=== PATIENT | female | born 1980 | race Caucasian/White ===

== ENCOUNTER 2019-03-11 13:18 | Emergency (ER) | payer SELFPAY ==
[~2019-03-11] VITALS: Ht 165.1 cm; Wt 99.8 kg
[~2019-03-11 13:18] MED LIST: ARIP10TA9; HYDR10TA2; SERT50TA
[2019-03-11 15:00] VITALS: BP 117/82
[2019-03-11] MEDS ORDERED: IPRATRPIUM/ALBUTEROL 0.5/2.5MG 3 ML NEBU. NEB ONE (15:00)
[2019-03-11] MEDS ORDERED: methylPREDNISolone SOD SUCC PF 125 MG/2 ML VIAL. IM ONE (15:00)
[2019-03-11] MEDS ORDERED: PRED50TA PO (16:13)
[2019-03-11] MEDS ORDERED: BENZ100C PO (16:13)
[2019-03-11] MEDS ORDERED: ALBU2.5V8 INH (16:13)
--- NOTE | 2019-03-11 16:13 | PHYS DOC ---
Past Medical History Past Medical History: Bipolar, Depression, Diabetes-Type II Past Surgical History: No Surgical History, Cholecystectomy, , Other Additional Past Surgical Histo: right ankle Alcohol Use: None Drug Use: None Adult General Chief Complaint Chief Complaint: COUGH HPI HPI Patient is a 38 year old female who presents to the ER with complaints of a non-productive cough, painful inspiration, and nasal congestion for the last week. She denies any fever, abdominal pain, nausea, vomiting, diarrhea, ear pain, or sore throat. Pt states she feels like she can't catch her breath after coughing. She also reports wheezing. She currently rates the pain in her lungs a 10/10 and describes it as burning, there are no alleviating factors. She denies any palpitations, dizziness, syncope, or swelling. She reports chest tenderness to palpation bilateral. Review of Systems Review of Systems Constitutional: Denies fever or chills [] Eyes: Denies change in visual acuity, redness, or eye pain [] HENT: see HPI Respiratory: See HPI Cardiovascular: No additional information not addressed in HPI [] GI: Denies abdominal pain, nausea, vomiting, or diarrhea [] Musculoskeletal: Denies back pain or joint pain; see HPI [] Integument: Denies rash or skin lesions [] Neurologic: Denies headache Complete systems were reviewed and found to be within normal limits, except as documented in this note. Current Medications Current Medications Current Medications Medications (Trade) Dose Ordered Sig/[facility] Start Time Stop Time Status Last Admin Dose Admin Albuterol/ Ipratropium (Duoneb) 3 ml 1X ONCE 03/11/19 15:00 03/11/19 15:01 DC 03/11/19 15:52 3 ML Methylprednisolone Sodium Succinate (SOLU-Medrol 125MG VIAL) 125 mg 1X ONCE 03/11/19 15:00 03/11/19 15:01 DC 03/11/19 15:28 125 MG Allergies Allergies Allergies Coded Allergies Type Severity Reaction Last Updated Verified Amoxicillin Allergy Unknown 10/03/13 Yes Physical Exam Physical Exam Constitutional: Well developed, well nourished, no acute distress, non-toxic appearance. [] HENT: Normocephalic, atraumatic, bilateral external ears normal, bilateral TMs normal, posterior pharynx congested, oropharynx moist, no oral exudates, nose congested. Eyes: PERRLA, EOMI, conjunctiva normal, no discharge. [] Neck: Normal range of motion, no tenderness, supple, no stridor. [] Cardiovascular:Heart rate regular rhythm, no murmur [] Lungs & Thorax: Bilateral breath sounds coarse in posterior garcia with scattered wheezes, no retractions, speaking full sentences, bilateral anterior chest wall tenderness to palpation Abdomen: soft, no tenderness, no masses, no pulsatile masses. [] Skin: Warm, dry, no erythema, no rash. [] Back: No tenderness Extremities: No tenderness, no cyanosis, no clubbing, ROM intact, no edema. [] Neurologic: Alert and oriented X 3, no focal deficits noted. [] Psychologic: Affect normal, judgement normal, mood normal. [] Current Patient Data Vital Signs Vital Signs Date Time Temp Pulse Resp B/P (MAP) Pulse Ox O2 Delivery O2 Flow Rate FiO2 03/11/19 15:52 99 Room Air 03/11/19 15:00 98.9 76 20 117/82 (94) 98.9 EKG EKG [] Radiology/Procedures Radiology/Procedures PROCEDURE: CHEST PA & LATERAL CHEST PA LATERAL Clinical indications: Cough for one week. COMPARISON: None available. Findings: Small right midlung zone nodule is seen. No acute lung infiltrate or pleural effusion or pulmonary edema or lung mass or pneumothorax is seen. Heart size is at the upper limits normal. The pulmonary vasculature, mediastinum and both jojo are unremarkable. The osseous structures appear intact. Impression: No acute radiographic abnormality is seen. Small right midlung zone nodule. Recommend a follow-up chest x-ray in 6 months to ensure stability. This most likely represents a small granuloma. [] Course & Med Decision Making Course & Med Decision Making Pertinent Labs and Imaging studies reviewed. (See chart for details) dx: URI, Bronchitis Pt was given 125 mg of IM solumedrol and an albuterol breathing tx in the ER Cxr negative for acute findings including pneumonia, or spontaneous pneumothorax. Prescriptions written for albuterol MDI, prednisone, and tessalon perrles. Follow up with PCP in 1-2 days, return to ER if symptoms worsen. PT reports feeling better after medications. Patient verbalized an understanding of home care, medications, follow-up, and return to ED instructions and was in agreement with the plan of care. [] Dragon Disclaimer Dragon Disclaimer This electronic medical record was generated, in whole or in part, using a voice recognition dictation system. Departure Departure Impression: Primary Impression: URI (upper respiratory infection) Additional Impression: Acute bronchitis Disposition: 01 HOME, SELF-CARE Condition: STABLE Referrals: NO PCP (PCP) Patient Instructions: Acute Bronchitis, [id number], Upper Respiratory Infection, Adult, [id number] Additional Instructions: Fill prescription(s) and use as directed. Recommend use of a Cool mist humidifier in room at bedtime. Alternate Tylenol or ibuprofen as needed for pain/fever. Increase clear fluids. Avoid airway triggers such as smoke, fragrance, dust, and pollen. Follow-up with your primary care doctor in 1-2 days, return to the ER if symptoms worsen. Scripts Benzonatate (TESSALON PERLE) 100 Mg Capsule 1 CAP PO TID PRN for COUGH for 7 Days, #21 CAP 0 Refills Prov: ADELE FUCHS COAL CHEMIST 03/11/19 Albuterol Sulfate (PROAIR HFA INHALER) 8.5 Gm Hfa.aer.ad 2 PUFF INH PRN Q6HRS PRN for SHORTNESS OF BREATH for 30 Days, #1 INHALER 0 Refills Prov: ADELE FUCHS COAL CHEMIST 03/11/19 Prednisone (PREDNISONE) 50 Mg Tablet 1 TAB PO DAILY for 5 Days, #5 TAB 0 Refills begin taking on 03/12/19 Prov: ADELE FUCHS COAL CHEMIST 03/11/19 Problem Qualifiers Primary Impression: URI (upper respiratory infection) URI type: unspecified URI Qualified Codes: J06.9 - Acute upper respiratory infection, unspecified Additional Impression: Acute bronchitis Bronchitis organism: unspecified organism Qualified Codes: J20.9 - Acute bronchitis, unspecified ADELE FUCHS COAL CHEMIST Mar 11, 2019 16:13
== END 2019-03-11 16:27 | disposition home or self-care (01) ==
LOC: ER 13:18
DX: J20.9 Acute bronchitis, unspecified (principal); F31.9 Bipolar disorder, unspecified; E11.9 Type 2 diabetes mellitus without complications; Z90.49 Acquired absence of other specified parts of digestive tract; Z98.890 Other specified postprocedural states; Z88.0 Allergy status to penicillin
CPT/HCPCS: 71046; 94640; 96372; 99284; J2930; J7620

== ENCOUNTER 2020-01-21 15:47 | Emergency (ER) | payer SELFPAY ==
[~2020-01-21] VITALS: Ht 165.1 cm; Wt 93.2 kg
[~2020-01-21 15:47] MED LIST changes: +ALBU2.5V8 INH; +BENZ100C PO; +PRED50TA PO
--- NOTE | 2020-01-21 17:41 | PHYS DOC ---
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 Patient states that pain in her head from her teeth has been going on for the past few months, states she is aware of her dental problems but has not been able to afford to see a dental surgeon to have her teeth removed. Patient states that the chest pain started this morning after lifting heavy patients and she needed to leave work early. Patient rates her pain a 10/10 pain on a 1-10 pain scale. Patient denies exposure to the COVID-19 virus and does not want to be tested for the COVID-19 virus today. Patient denies any fever or chills, any changes her visual acuity, denies nasal congestion, sore throat, cough, or shortness of breath. Patient denies any problems urinating, denies vaginal discharge, denies STI concerns. Patient denies abdominal pain, nausea, vomiting, diarrhea, constipation. Patient denies any pain in her back or pain in her joints. Patient denies any skin rashes, increased urination or increased thirst. Patient denies swelling of her glands. Patient denies any recent depressions, anxieties, homicidal or suicidal ideations. Review of Systems: Review of Systems: Constitutional: Denies fever or chills. Denies recent exposure to COVID-19 virus, does not wish to be tested today. Eyes: Denies change in visual acuity. HENT: Denies nasal congestion or sore throat. Complains of dental cavities that she has had for months. Respiratory: Denies cough or shortness of breath. Cardiovascular: Complains of chest pain with movement of left or right arm, deep breathing, or pushing on her center lower chest area. GI: Denies abdominal pain, nausea, vomiting, bloody stools or diarrhea. : Denies dysuria. Denies STI concerns denies vaginal discharge. Musculoskeletal: Denies back pain or joint pain. Integument: Denies rash. Denies diaphoresis. Neurologic: Denies headache, focal weakness or sensory changes. Endocrine: Denies polyuria or polydipsia. Lymphatic: Denies swollen glands. Psychiatric: Denies depression or anxiety. Denies homicidal or suicidal ideations. Heart Score: HEART Score for Chest Pain: HEART Score for Chest Pain Response (Comments) Value History Slighlty/Non-Suspicious 0 ECG Normal 0 Age < 45 0 Risk Factors No Risk Factors 0 Troponin < Normal Limit 0 Total 0 Risk Factors: Risk Factors: DM, Current or recent (<one month) smoker, HTN, HLP, family history of CAD, obesity. Risk Scores: Score 0 - 3: 2.5% MACE over next 6 weeks - Discharge Home Score 4 - 6: 20.3% MACE over next 6 weeks - Admit for Clinical Observation Score 7 - 10: 72.7% MACE over next 6 weeks - Early Invasive Strategies Allergies: Allergies: Allergies Coded Allergies Type Severity Reaction Last Updated Verified Amoxicillin Allergy Unknown 10/03/13 Yes Physical Exam: PE: Constitutional: Well developed, well nourished, no acute distress, non-toxic appearance. HENT: Normocephalic, atraumatic, bilateral external ears normal, oropharynx moist, no oral exudates, nose normal. Patient has poor dentition with cavities of her upper rear molars 2 on the rear left one in the rear right, consistent with pulpitis. Eyes: PERRLA, EOMI, conjunctiva normal, no discharge. 4 mm. Neck: Normal range of motion, no tenderness, supple, no stridor. Cardiovascular:Heart rate regular rhythm, no murmur heart sounds S1-S2, no abnormalities per auscultation. Lungs & Thorax: Bilateral breath sounds clear to auscultation all lung garcia. Abdomen: Bowel sounds normal, soft, no tenderness, no masses, no pulsatile masses. Skin: Warm, dry, no erythema, no rash. Back: No tenderness, no CVA tenderness. Extremities: No tenderness, no cyanosis, no clubbing, ROM intact, no edema. Neurologic: Alert and oriented X 3, normal motor function, normal sensory function, no focal deficits noted. Psychologic: Affect normal, judgement normal, mood normal. No homicidal or suicidal ideation. Musculoskeletal: Patient had reproducible chest pain to movement of both upper extremities, also to palpation near sternal xiphoid process area, also increased pain to deep inspiration. Patient reports absolutely no pain when she is sitting still and not breathing. Current Patient Data: Vital Signs: Vital Signs Date Time Temp Pulse Resp B/P (MAP) Pulse Ox O2 Delivery O2 Flow Rate FiO2 01/21/20 16:32 98.1 79 16 125/59 (81) 99 Room Air 98.1 EKG: EKG: EKG performed at 1553 by ED nursing staff today. Heart rate is 85, normal sinus rhythm without ectopy. EKG interpreted by ED attending Dr. Orta. No STEMI noted no ACS concerns noted. Radiology/Procedures: Radiology/Procedures: [] Course & Med Decision Making: Course & Med Decision Making Pertinent Labs and Imaging studies reviewed. (See chart for details) 39-year-old female resents to the ED today complaining of a headache that she thinks generates from her cavities that she has had for a few months now. Patient also states that she has some chest pain that started after lifting some heavy patients at her snf job. Vital signs were reviewed, labs were ordered, EKG was not concerning for STEMI or ACS. Patient's physical exam was consistent with musculoskeletal chest wall pain. Patient has poor dental caries, upper rear molars show consistencies with pulpitis, nerves are exposed. Patient states that she will make an appointment to see an oral surgeon soon, patient states that she has been unable to afford to get her teeth pulled. Discussed findings with patient regarding musculoskeletal chest wall pain, patient states that she has had this before from doing her snf work. Discussed with patient will start clindamycin for her dental caries, and she needs to follow-up with oral surgery soon. Patient gave verbal understanding of discharge home instructions and prescription use, had no further questions or concerns. Patient discharged home. Dragon Disclaimer: Dragon Disclaimer: This electronic medical record was generated, in whole or in part, using a voice recognition dictation system. Departure Departure Impression: Primary Impression: Chest wall pain Additional Impressions: Pulpitis Dental caries Disposition: HOME, SELF-CARE Condition: GOOD Referrals: UNKNOWN PCP NAME (PCP) Patient Instructions: Chest Wall Pain Additional Instructions: Please follow-up with oral surgery soon, take prescriptions as directed. Return to the emergency department for worsening symptoms or further concerns. Scripts Ibuprofen (IBUPROFEN) 600 Mg Tablet 600 MG PO PRN Q6HRS PRN for INFLAMMATION, #20 TAB 0 Refills Prov: JANET LEWIS APRN 01/21/20 Tramadol Hcl (TRAMADOL HCL) 50 Mg Tablet 50 MG PO Q6HRS PRN for PAIN, #10 TAB 0 Refills Prov: JANET LEWIS APRN 01/21/20 Clindamycin Hcl (CLINDAMYCIN HCL) 300 Mg Capsule 1 CAP PO TID, #21 CAP 0 Refills Prov: JANET LEWIS APRN 01/21/20 Justicifation of Admission Dx: Justifications for Admission: Justification of Admission Dx: N/A JANET LEWIS APRN Jan 21, 2020 17:41
[2020-01-21] MEDS ORDERED: CLINDAMYCIN HCL 150 MG CAPSULE. PO ONE (17:45)
[2020-01-21] MEDS ORDERED: HYDROcodone/APAP 5/325MG 1 TAB TABLET PO ONE (17:45)
[2020-01-21] MEDS ORDERED: KETOROLAC 60 MG/2 ML VIAL. IM ONE (17:45)
[2020-01-21] MEDS ORDERED: fentaNYL PF VIAL 100 MCG/2 ML VIAL IVP ONE (19:15)
[2020-01-21] MEDS ORDERED: CLIN300C8 PO (19:25)
[2020-01-21] MEDS ORDERED: IBUP-1007 PO (19:25)
[2020-01-21] MEDS ORDERED: TRAM50TA PO (19:25)
[2020-01-21 19:46] VITALS: BP 104/60
--- NOTE | 2020-01-23 05:01 | EKG ---
[facility] [address] [place] [address] Test Date: 2020-01-21 Test Time: 15:53:47 Pat Name: DELBERT LANDRY Department: Room: Gender: F Butt Presser: : 1980 Requested By: JANET LEWIS Order Number: [id number] Reading MD: Measurements Intervals [place] Rate: 85 P: 26 AL: 132 QRS: -7 QRSD: 96 T: -15 QT: 342 QTc: 412 Interpretive Statements SINUS RHYTHM LEFTWARD AXIS INCOMPLETE RIGHT BUNDLE BRANCH BLOCK T ABNORMALITY IN ANTERIOR LEADS INFEROLATERAL LEADS ABNORMAL ECG RI6.02 No previous ECG available for comparison
== END 2020-01-21 19:55 | disposition home or self-care (01) ==
LOC: ER 15:47
DX: K02.9 Dental caries, unspecified (principal); R07.89 Other chest pain; K04.01 Reversible pulpitis; R51 Headache; E11.9 Type 2 diabetes mellitus without complications; F32.9 Major depressive disorder, single episode, unspecified; F17.200 Nicotine dependence, unspecified, uncomplicated; Z90.49 Acquired absence of other specified parts of digestive tract; Z98.890 Other specified postprocedural states; Z88.1 Allergy status to other antibiotic agents
CPT/HCPCS: 36415; 84484; 96372; 96374; 99284; J1885; J3010; 93005

== ENCOUNTER 2020-02-06 12:33 | Emergency (ER) | payer SELFPAY ==
[~2020-02-06] VITALS: Ht 165.1 cm; Wt 97.0 kg
[~2020-02-06 12:33] MED LIST changes: +CLIN300C8 PO; +IBUP-1007 PO; +TRAM50TA PO
[2020-02-06] MEDS ORDERED: CYCL10TA2 PO (13:11)
[2020-02-06] MEDS ORDERED: NAPR-514 PO (13:11)
--- NOTE | 2020-02-06 13:12 | PHYS DOC ---
Past Medical History Past Medical History: Bipolar, Depression, Diabetes-Type II, Other Additional Past Medical Histor: CROHNS, DECREASED VISION R EYE Past Surgical History: Cholecystectomy, , Other Additional Past Surgical Histo: right ankle, MULTIPLE R EYE INJECTIONS Smoking Status: Current Every Day Smoker Alcohol Use: Occasionally Drug Use: None General Adult EDM: Chief Complaint: BACK PAIN OR INJURY HPI: HPI: Patient is a 39 year old female who presents to the emergency department with complaints of right-sided lower back pain that radiates to her right leg for the last 5 days. She denies any injury, fall, or recent trauma. The patient reports that the pain is worse with movement of her right leg, palpation of her right low back, and activity. She denies any saddle anesthesia or loss of bowel or bladder control. She denies any dysuria, hematuria, increased urinary frequency, numbness, tingling, or weakness of her extremities. She denies any fever, shortness of breath, chest pain, headache, nausea, vomiting, or diarrhea. She currently rates the pain a 9 out of 10 on the pain scale, she has tried taking Aleve, ibuprofen, Tylenol at home with no relief in her symptoms. She denies any alleviating factors. Review of Systems: Review of Systems: Constitutional: Denies fever or chills. [] HENT: Denies nasal congestion or sore throat. [] Respiratory: Denies cough or shortness of breath. [] Cardiovascular: Denies chest pain or edema. [] GI: Denies abdominal pain, nausea, vomiting, or diarrhea. [] : Denies dysuria. [] Musculoskeletal: See HPI Integument: Denies rash. [] Neurologic: Denies focal weakness or sensory changes. [] Endocrine: Denies polyuria or polydipsia. [] Lymphatic: Denies swollen glands. [] Psychiatric: Denies depression or anxiety. [] Heart Score: Risk Factors: Risk Factors: DM, Current or recent (<one month) smoker, HTN, HLP, family history of CAD, obesity. Risk Scores: Score 0 - 3: 2.5% MACE over next 6 weeks - Discharge Home Score 4 - 6: 20.3% MACE over next 6 weeks - Admit for Clinical Observation Score 7 - 10: 72.7% MACE over next 6 weeks - Early Invasive Strategies Allergies: Allergies: Allergies Coded Allergies Type Severity Reaction Last Updated Verified Amoxicillin Allergy Unknown 10/03/13 Yes Physical Exam: PE: Constitutional: Well developed, well nourished, no acute distress, non-toxic appearance, obese. [] HENT: Normocephalic, atraumatic, bilateral external ears normal, oropharynx moist, no oral exudates, nose normal. [] Eyes: PERRLA, EOMI, conjunctiva normal, no discharge. [] Neck: Normal range of motion, no stridor. [] Cardiovascular:Heart rate regular rhythm, no murmur [] Lungs & Thorax: Respirations even and unlabored, no retractions, no respiratory distress Skin: Warm, dry, no erythema, no rash. [] Back: No bony tenderness, no CVA tenderness; right lumbar paraspinal TTP, increased pain with right straight leg lift.. [] Extremities: No cyanosis, ROM intact, no edema. [] Neurologic: Alert and oriented X 3, normal motor function, normal sensory function, no focal deficits noted. [] Psychologic: Affect normal, judgement normal, mood normal. [] Current Patient Data: Vital Signs: Vital Signs Date Time Temp Pulse Resp B/P (MAP) Pulse Ox O2 Delivery O2 Flow Rate FiO2 02/06/20 12:45 97.8 80 16 139/87 (104) 99 Room Air 97.8 EKG: EKG: [] Radiology/Procedures: Radiology/Procedures: [] Course & Med Decision Making: Course & Med Decision Making Pertinent Labs and Imaging studies reviewed. (See chart for details) [] Dragon Disclaimer: Dragon Disclaimer: This electronic medical record was generated, in whole or in part, using a voice recognition dictation system. Departure Departure Impression: Primary Impression: Acute low back pain with right-sided sciatica Qualified Codes: M54.41 - Lumbago with sciatica, right side Disposition: 01 HOME, SELF-CARE Condition: STABLE Referrals: NO PCP (PCP) Patient Instructions: Sciatica, [id number] Additional Instructions: Fill the prescription(s) and use as directed. Apply heat or ice for to sore areas as needed for comfort. Activity as tolerated. Follow up with your primary care doctor this week if symptoms persist, return to the ER if symptoms worsen. [facility] [address] [address] [facility] [address] [place] [address] [facility] [address] [place] [address] [facility] [address] [place] [address] [facility] [address] [place] [address] [facility] [address] [place] [address] [address] [place] [address] [facility] [address] [place] [address] [facility] [address] [place] [address] [facility] Department [address] [place] [address] Scripts Naproxen (NAPROXEN) 500 Mg Tablet 1 TAB PO BID PRN for PAIN for 10 Days, #20 TAB 0 Refills Prov: ADELE FUCHS APRN 02/06/20 Cyclobenzaprine Hcl (CYCLOBENZAPRINE HCL) 10 Mg Tablet 1 TAB PO TID PRN for MUSCLE PAIN for 10 Days, #30 TAB 0 Refills Prov: ADELE FUCHS APRN 02/06/20 Justicifation of Admission Dx: Justifications for Admission: Justification of Admission Dx: N/A ADELE FUCHS APRN Feb 06, 2020 13:12
[2020-02-06 13:19] VITALS: BP 125/73
== END 2020-02-06 13:20 | disposition home or self-care (01) ==
LOC: ER 12:33
DX: M54.41 Lumbago with sciatica, right side (principal); F31.9 Bipolar disorder, unspecified; E11.9 Type 2 diabetes mellitus without complications; F17.200 Nicotine dependence, unspecified, uncomplicated; K50.90 Crohn's disease, unspecified, without complications; Z90.49 Acquired absence of other specified parts of digestive tract; Z88.1 Allergy status to other antibiotic agents
CPT/HCPCS: 99283

== ENCOUNTER 2020-05-02 14:09 | Emergency (ER) | payer SELFPAY ==
[~2020-05-02] VITALS: Ht 165.1 cm; Wt 95.0 kg
[~2020-05-02 14:09] MED LIST changes: +CYCL10TA2 PO; +NAPR-514 PO
[2020-05-02 14:44] LABS: BASO % 0 % (0-3); EOS # 0.6 x10^3/uL (0.0-0.7); EOS % 6 % (0-3); HEMATOCRIT 37.5 % (36.0-47.0); HEMOGLOBIN 12.1 g/dL (12.0-15.5); LYMPH # 2.8 x10^3/uL (1.0-4.8); LYMPH % 30 % (24-48); MEAN CORPUSCULAR HEMOGLOBIN 27 pg (25-35); MEAN CORPUSCULAR HGB CONC 32 g/dL (31-37); MEAN CORPUSCULAR VOLUME 84 fL (79-100); MONO # 0.5 x10^3/uL (0.0-1.1); MONO % 5 % (0-9); NEUT # 5.7 x10^3/uL (1.8-7.7); NEUT % 60 % (31-73); PLATELET COUNT 340 x10^3/uL (140-400); RED BLOOD COUNT 4.48 x10^6/uL (3.50-5.40); RED CELL DISTRIBUTION WIDTH 15.1 % (11.5-14.5); WHITE BLOOD COUNT 9.6 x10^3/uL (4.0-11.0)
[2020-05-02] MEDS ORDERED: MORPHINE SULFATE 4 MG/ML VIAL. IV/SQ PRN (14:45)
[2020-05-02] MEDS ORDERED: ASPIRIN 325 MG TABLET PO ONE (14:45)
[2020-05-02] MEDS: NITROGLYCERIN SUBLINGUAL 0.4 MG BOTTLE OF 25. SL PRN ×3 (15:01→15:48)
--- NOTE | 2020-05-02 15:04 | RAD ---
INDICATION: Reason: chest pain / Spl. Instructions: / History: COMPARISON: March 11, 2019 FINDINGS: Single view of chest obtained. Cardiac silhouette is similar to prior. No definite focal airspace consolidation. Mild interstitial prominence bilaterally. IMPRESSION: * Mild interstitial opacities bilaterally which can be seen with interstitial infiltrate or mild pulmonary vascular congestion. Electronically signed by: Musa Morales MD (05/02/2020 3:01 PM) [id number]
[2020-05-02 15:06] LABS: CREATININE 0.7 mg/dL (0.6-1.0); GFR 93.6; POTASSIUM 3.9 mmol/L (3.5-5.1)
[2020-05-02 15:13] LABS: ALBUMIN 3.6 g/dL (3.4-5.0); ALBUMIN/GLOBULIN RATIO 0.9 (1.0-1.7); MAGNESIUM 2.3 mg/dL (1.8-2.4); TOTAL BILIRUBIN 0.2 mg/dL (0.2-1.0); TOTAL PROTEIN 7.6 g/dL (6.4-8.2)
--- NOTE | 2020-05-02 15:28 | PHYS DOC ---
Past Medical History Past Medical History: Asthma, Bipolar, Depression, Diabetes-Type II, High Cholesterol, Other Additional Past Medical Histor: CROHNS, DECREASED VISION R EYE Past Surgical History: Cholecystectomy, , Other Additional Past Surgical Histo: right ankle, MULTIPLE R EYE INJECTIONS Smoking Status: Current Every Day Smoker Alcohol Use: Occasionally Drug Use: None General Adult EDM: Chief Complaint: CHEST PAIN HPI: HPI: Patient is a 39 year old female with a history of diabetes type 2, high cholesterol, depression, anxiety, current smoker, who presents to the ED today complaining of 8 out of 10 left-sided chest pain nonradiating nature, symptoms began 2 hours ago. Patient states symptoms are worse on deep breaths. Describ es the pain as sharp and constant. Denies anything specifically relieving the pain, she states Tylenol do anything to help her with pain. Review of Systems: Review of Systems: Constitutional: Denies fever or chills. [] Eyes: Denies change in visual acuity. [] HENT: Denies nasal congestion or sore throat. [] Respiratory: Denies cough or shortness of breath. [] Cardiovascular: Reports left-sided chest pain GI: Denies abdominal pain, nausea, vomiting, bloody stools or diarrhea. [] : Denies dysuria. [] Musculoskeletal: Denies back pain or joint pain. [] Integument: Denies rash. [] Neurologic: Denies headache, focal weakness or sensory changes. [] Psychiatric: Denies depression or anxiety. [] Heart Score: HEART Score for Chest Pain: HEART Score for Chest Pain Response (Comments) Value History Slighlty/Non-Suspicious 0 ECG Normal 0 Age < 45 0 Risk Factors 1 or 2 Risk Factors 1 Troponin < Normal Limit 0 Total 1 Risk Factors: Risk Factors: DM, Current or recent (<one month) smoker, HTN, HLP, family history of CAD, obesity. Risk Scores: Score 0 - 3: 2.5% MACE over next 6 weeks - Discharge Home Score 4 - 6: 20.3% MACE over next 6 weeks - Admit for Clinical Observation Score 7 - 10: 72.7% MACE over next 6 weeks - Early Invasive Strategies Current Medications: Current Medications Medications (Trade) Dose Ordered Sig/Brianne Start Time Stop Time Status Last Admin Dose Admin Aspirin (Lisa Aspirin) 325 mg 1X ONCE 05/02/20 14:45 05/02/20 14:46 DC 05/02/20 15:01 325 MG Morphine Sulfate (Morphine Sulfate) 4 mg PRN Q15MIN PRN 05/02/20 14:45 05/03/20 14:44 05/02/20 15:02 4 MG Nitroglycerin (Nitrostat) 0.4 mg PRN Q5MIN PRN 05/02/20 14:45 05/03/20 14:44 05/02/20 15:08 0.4 MG Allergies: Allergies: Allergies Coded Allergies Type Severity Reaction Last Updated Verified amoxicillin Allergy Unknown 10/03/13 Yes Physical Exam: PE: Constitutional: Well developed, well nourished, no acute distress, non-toxic appearance. [] HENT: Normocephalic, atraumatic, bilateral external ears normal, oropharynx moist, no oral exudates, nose normal. [] Eyes: PERRLA, EOMI, conjunctiva normal, no discharge. [] Neck: Normal range of motion, no tenderness, supple, no stridor. [] Cardiovascular:Heart rate regular rhythm, no murmur [] Lungs & Thorax: Bilateral breath sounds clear to auscultation [] Abdomen: Bowel sounds normal, soft, no tenderness, no masses, no pulsatile masses. [] Skin: Warm, dry, no erythema, no rash. [] Back: No tenderness, no CVA tenderness. [] Extremities: No tenderness, no cyanosis, no clubbing, ROM intact, no edema. [] Neurologic: Alert and oriented X 3, normal motor function, normal sensory function, no focal deficits noted. [] Psychologic: Affect normal, judgement normal, mood normal. [] Current Patient Data: Labs: Laboratory Tests Test 05/02/20 14:30 White Blood Count 9.6 x10^3/uL (4.0-11.0) Red Blood Count 4.48 x10^6/uL (3.50-5.40) Hemoglobin 12.1 g/dL (12.0-15.5) Hematocrit 37.5 % (36.0-47.0) Mean Corpuscular Volume 84 fL (79-100) Mean Corpuscular Hemoglobin 27 pg (25-35) Mean Corpuscular Hemoglobin Concent 32 g/dL (31-37) Red Cell Distribution Width 15.1 % (11.5-14.5) H Platelet Count 340 x10^3/uL (140-400) Neutrophils (%) (Auto) 60 % (31-73) Lymphocytes (%) (Auto) 30 % (24-48) Monocytes (%) (Auto) 5 % (0-9) Eosinophils (%) (Auto) 6 % (0-3) H Basophils (%) (Auto) 0 % (0-3) Neutrophils # (Auto) 5.7 x10^3/uL (1.8-7.7) Lymphocytes # (Auto) 2.8 x10^3/uL (1.0-4.8) Monocytes # (Auto) 0.5 x10^3/uL (0.0-1.1) Eosinophils # (Auto) 0.6 x10^3/uL (0.0-0.7) Basophils # (Auto) 0.0 x10^3/uL (0.0-0.2) D-Dimer (Bianca) 0.33 ug/mlFEU (0.00-0.50) Sodium Level 140 mmol/L (136-145) Potassium Level 3.9 mmol/L (3.5-5.1) Chloride Level 104 mmol/L (98-107) Carbon Dioxide Level 26 mmol/L (21-32) Anion Gap 10 (6-14) Blood Urea Nitrogen 8 mg/dL (7-20) Creatinine 0.7 mg/dL (0.6-1.0) Estimated GFR (Cockcroft-Gault) 93.6 BUN/Creatinine Ratio 11 (6-20) Glucose Level 99 mg/dL (70-99) Glucose (Fingerstick) 114 mg/dL (70-99) H Calcium Level 9.0 mg/dL (8.5-10.1) Magnesium Level Pending Total Bilirubin Pending Aspartate Amino Transferase (AST) Pending Alanine Aminotransferase (ALT) Pending Alkaline Phosphatase Pending Total Protein Pending Albumin Pending Albumin/Globulin Ratio Pending Laboratory Tests 05/02/20 14:30 Laboratory Tests 05/02/20 14:30 Vital Signs: Vital Signs Date Time Temp Pulse Resp B/P (MAP) Pulse Ox O2 Delivery O2 Flow Rate FiO2 05/02/20 15:08 80 130/63 05/02/20 15:02 25 98 Room Air 05/02/20 14:30 98.2 98.2 EKG: EK interpreted by Dr. Guerra sinus rhythm HR 71 no STEMI[] Radiology/Procedures: Radiology/Procedures: []PROCEDURE: PORTABLE CHEST 1V INDICATION: Reason: chest pain / Spl. Instructions: / History: COMPARISON: March 11, 2019 FINDINGS: Single view of chest obtained. Cardiac silhouette is similar to prior. No definite focal airspace consolidation. Mild interstitial prominence bilaterally. IMPRESSION: * Mild interstitial opacities bilaterally which can be seen with interstitial infiltrate or mild pulmonary vascular congestion. Electronically signed by: Rc Hicks MD (05/02/2020 3:01 PM) [id number] DICTATED and SIGNED BY: RC HICKS MD DATE: 05/02/20 [id number] 0 Course & Med Decision Making: Course & Med Decision Making Pertinent Labs and Imaging studies reviewed. (See chart for details) This is a 39-year-old female patient presenting to the ED today complaining of chest pain that began 2 hours ago. EKG is negative, 2 troponins were done 3 hours apart which are negative. D- dimer is normal. Chest x-ray was noted for interstitial infiltrates, patient is a smoker. She was put on Z-Roge and prednisone. Was encouraged to consider smoking cessation. She has been asking for pain medicine quite a bit more that what is expected for a patient with negative cardiac work up. We have given her morphine, aspirin and nitroglycerin and she was still asking for more pain medicine. Nursing staff were concerned her pain needs were higher than normal. I went to give her results. Informed her there is no acute findings that warrants giving her any more pain medicine specifically narcotics, informed she can take OTC pain relievers. She started removing her own pulse oximetry and threw it on the bed stating she needs to get dressed and go home right now. She was discharged to home. Provided a [employer] inspector to follow-up as well as her own PCP Marilyn Disclaimer: Marilyn Disclaimer: This electronic medical record was generated, in whole or in part, using a voice recognition dictation system. Departure Departure Impression: Primary Impression: Person under investigation for COVID-19 Additional Impressions: Chest pain Qualified Codes: R07.9 - Chest pain, unspecified Smoking addiction Disposition: 01 DC HOME SELF CARE/HOMELESS Condition: STABLE Referrals: NO PCP (PCP) STEPHEN FOSS MD follow up next week Patient Instructions: Chest Pain (Nonspecific) Additional Instructions: You were evaluated in the emergency room for chest pain, your EKG was negative for any acute findings, your work up was negative for any acute findings. You were tested for COVID-19. We will call in the course of next week with results. Please quarantine yourself until you hear from us. You can take aspirin as needed for pain or Tylenol or Motrin. Please follow-up with your primary care doctor or the provided [employer] inspector in the course of next week. Scripts Prednisone (PREDNISONE) 50 Mg Tablet 1 TAB PO DAILY, #5 TAB Prov: RAN RIBEIRO DISHTANK OPERATOR 05/02/20 Azithromycin (ZITHROMAX) 250 Mg Tablet 1 PKG PO UD, #1 PKG Prov: RAN RIBEIRO DISHTANK OPERATOR 05/02/20 RAN RIBEIRO APRN May 02, 2020 15:28
[2020-05-02 16:03] LABS: AMPHETAMINE/METHAMPHETAMINE NEG (NEG); BARBITURATES NEG (NEG); BENZODIAZEPINES NEG (NEG); CANNABINOIDS NEG (NEG); COCAINE NEG (NEG); METHADONE NEG (NEG); OPIATES POS (NEG); PHENCYCLIDINE NEG (NEG)
[2020-05-02 18:30] VITALS: BP 130/83
[2020-05-02] MEDS ORDERED: AZIT250T PO (18:41)
[2020-05-02] MEDS ORDERED: PRED50TA PO (18:42)
== END 2020-05-02 18:59 | disposition home or self-care (01) ==
LOC: ER 14:09
DX: R07.89 Other chest pain (principal); Z20.828 Contact with and (suspected) exposure to other viral communicable diseases; E11.9 Type 2 diabetes mellitus without complications; F31.9 Bipolar disorder, unspecified; J45.909 Unspecified asthma, uncomplicated; E78.00 Pure hypercholesterolemia, unspecified; F41.9 Anxiety disorder, unspecified; K50.90 Crohn's disease, unspecified, without complications; F17.200 Nicotine dependence, unspecified, uncomplicated; Z88.1 Allergy status to other antibiotic agents
CPT/HCPCS: 36415; 71045; 80053; 80307; 81025; 82962; 83735; 83880; 84443; 84484; 85025; 85379; 93005; 96374; 99285; J2270; U0003; C9803

== ENCOUNTER 2021-01-17 19:00 | Emergency (ER) | payer SELFPAY ==
[~2021-01-17] VITALS: Ht 165.1 cm; Wt 93.2 kg
[~2021-01-17 19:00] MED LIST changes: +AZIT250T PO; -CLIN300C8 PO; +CLIN300C9 PO
[2021-01-17 21:13] LABS: BARBITURATES NEG (NEG); BENZODIAZEPINES NEG (NEG); CANNABINOIDS NEG (NEG); COCAINE NEG (NEG); METHADONE NEG (NEG); OPIATES NEG (NEG); PHENCYCLIDINE NEG (NEG)
[2021-01-17 21:21] LABS: AMPHETAMINE/METHAMPHETAMINE NEG (NEG)
--- NOTE | 2021-01-17 21:24 | RAD ---
XR CHEST 1V History: Reason: cp / Spl. Instructions: / History: Comparison: May 02, 2020 Findings: No consolidation or pleural effusion. Normal heart size. No pneumothorax. Impression: 1. No acute cardiopulmonary process. Electronically signed by: Santiago Myers DO (01/17/2021 9:21 PM) [facility] [place]
[2021-01-17] MEDS ORDERED: KETOROLAC 15 MG/ML VIAL. IVP ONE (21:45)
[2021-01-17 21:46] LABS: BASO # 0.2 x10^3/uL (0.0-0.2); BASO % 1 % (0-3); EOS # 0.3 x10^3/uL (0.0-0.7); EOS % 3 % (0-3); HEMATOCRIT 36.9 % (36.0-47.0); HEMOGLOBIN 11.9 g/dL (12.0-15.5); LYMPH # 3.5 x10^3/uL (1.0-4.8); LYMPH % 28 % (24-48); MEAN CORPUSCULAR HEMOGLOBIN 27 pg (25-35); MEAN CORPUSCULAR HGB CONC 32 g/dL (31-37); MEAN CORPUSCULAR VOLUME 82 fL (79-100); MONO # 0.8 x10^3/uL (0.0-1.1); MONO % 7 % (0-9); NEUT # 7.9 x10^3/uL (1.8-7.7); NEUT % 62 % (31-73); PLATELET COUNT 312 x10^3/uL (140-400); RED BLOOD COUNT 4.49 x10^6/uL (3.50-5.40); RED CELL DISTRIBUTION WIDTH 16.1 % (11.5-14.5); WHITE BLOOD COUNT 12.6 x10^3/uL (4.0-11.0)
--- NOTE | 2021-01-17 21:52 | PHYS DOC ---
Past Medical History Past Medical History: Asthma, Bipolar, Depression, Diabetes-Type II, High Cholesterol, Other Additional Past Medical Histor: CROHNS, DECREASED VISION R EYE, CARDIOMEGALY Past Surgical History: Cholecystectomy, , Other Additional Past Surgical Histo: right ankle, MULTIPLE R EYE INJECTIONS Smoking Status: Current Every Day Smoker Alcohol Use: Occasionally Drug Use: None General Adult EDM: Chief Complaint: MULTIPLE COMPLAINTS HPI: HPI: 40-year-old female past medical history of Crohn's, bipolar disorder, hyperlipidemia, RLE dvt (on no ac, "years ago") and diabetes presents to the ED with complaints of shortness of breath, cough, fever and chills for the past 2 days stating " I am tender to the touch on the left side of my chest, it hurts worse when I breathe hard." Was admitted to 6 years ago and told she had "T wave abnormalities," had an echocardiogram but no stress test. Is a former tobacco smoker. Is not on any brirth control and has had a tubal ligation. Has not been vaccinated for Covid. Also reports mild right low back pain/body aches and states "I didn't even think I could have covid." No personal or family history of AAA, AAD, CTD (ehlos danlos or marfans), cardiac arrhythmias (need for AICD), CAD or sudden or unexplainable (under 50 years of age or with exertion). Review of Systems: Review of Systems: Constitutional: Denies malaise or lethargy Eyes: Denies change in visual acuity. [] HENT: Denies nasal congestion or sore throat. [] Respiratory: Denies hemoptysis or increased work of breathing Cardiovascular: Denies syncope or edema GI: Denies abdominal pain, nausea, vomiting, bloody stools or diarrhea. [] : Denies dysuria or vaginal bleeding Musculoskeletal: Denies back pain or joint pain. [] Integument: Denies rash. Or diaphoresis Neurologic: Denies headache, focal weakness or sensory changes. [] Endocrine: Denies polyuria or polydipsia. [] Lymphatic: Denies swollen glands. [] Psychiatric: Denies depression or anxiety. [] Heart Score: C/O Chest Pain: Yes HEART Score for Chest Pain: HEART Score for Chest Pain Response (Comments) Value History Slighlty/Non-Suspicious 0 ECG Nonspecific Repolarizatio 1 Age < 45 0 Risk Factors 1 or 2 Risk Factors 1 Troponin < Normal Limit 0 Total 2 Risk Factors: Risk Factors: DM, Current or recent (<one month) smoker, HTN, HLP, family history of CAD, obesity. Risk Scores: Score 0 - 3: 2.5% MACE over next 6 weeks - Discharge Home Score 4 - 6: 20.3% MACE over next 6 weeks - Admit for Clinical Observation Score 7 - 10: 72.7% MACE over next 6 weeks - Early Invasive Strategies Current Medications: Current Medications Medications (Trade) Dose Ordered Sig/Brianne Start Time Stop Time Status Last Admin Dose Admin Ketorolac Tromethamine (Toradol 15mg Vial) 15 mg 1X ONCE 01/17/21 21:45 01/17/21 21:46 DC Allergies: Allergies: Allergies Coded Allergies Type Severity Reaction Last Updated Verified amoxicillin Allergy Unknown 10/03/13 Yes Physical Exam: PE: Constitutional: Well developed, well nourished, no acute distress, non-toxic appearance. HENT: Normocephalic, atraumatic, Eyes: EOMI, conjunctiva normal, no discharge. Neck: Normal range of motion, supple, Cardiovascular: S1/2 present, regular rhythm, reproducible left chest wall pain located over mid thoracic ribs just lateral to the sternum Lungs & Thorax: Speaking in full sentences, bilateral equal chest rise, no tachypnea or increased work of breathing Abdomen: soft, no tenderness, Skin: Warm, dry, no erythema, no rash. [] Back: No tenderness, no CVA tenderness. [] Extremities: No tenderness, no cyanosis, no unilateral lower extremity edema Neurologic: Alert and oriented X 3, normal motor function, normal sensory funct ion, no focal deficits noted. [] Psychologic: Affect normal, judgement normal, mood normal. [] Current Patient Data: Labs: Laboratory Tests Test 01/17/21 20:30 01/17/21 21:40 Urine Opiates Screen Neg (NEG) Urine Methadone Screen Neg (NEG) Urine Barbiturates Neg (NEG) Urine Phencyclidine Screen Neg (NEG) Urine Amphetamine/Methamphetamine Neg (NEG) Urine Benzodiazepines Screen Neg (NEG) Urine Cocaine Screen Neg (NEG) Urine Cannabinoids Screen Neg (NEG) Urine Ethyl Alcohol Neg (NEG) White Blood Count 12.6 x10^3/uL (4.0-11.0) H Red Blood Count 4.49 x10^6/uL (3.50-5.40) Hemoglobin 11.9 g/dL (12.0-15.5) L Hematocrit 36.9 % (36.0-47.0) Mean Corpuscular Volume 82 fL (79-100) Mean Corpuscular Hemoglobin 27 pg (25-35) Mean Corpuscular Hemoglobin Concent 32 g/dL (31-37) Red Cell Distribution Width 16.1 % (11.5-14.5) H Platelet Count 312 x10^3/uL (140-400) Neutrophils (%) (Auto) 62 % (31-73) Lymphocytes (%) (Auto) 28 % (24-48) Monocytes (%) (Auto) 7 % (0-9) Eosinophils (%) (Auto) 3 % (0-3) Basophils (%) (Auto) 1 % (0-3) Neutrophils # (Auto) 7.9 x10^3/uL (1.8-7.7) H Lymphocytes # (Auto) 3.5 x10^3/uL (1.0-4.8) Monocytes # (Auto) 0.8 x10^3/uL (0.0-1.1) Eosinophils # (Auto) 0.3 x10^3/uL (0.0-0.7) Basophils # (Auto) 0.2 x10^3/uL (0.0-0.2) Laboratory Tests 01/17/21 21:40 Vital Signs: Vital Signs Date Time Temp Pulse Resp B/P (MAP) Pulse Ox O2 Delivery O2 Flow Rate FiO2 01/17/21 20:05 98.8 84 18 110/81 (99) 98 Room Air 98.8 EKG: EKG: Sinus rhythm at 70 bpm, no axis deviation, normal intervals, T wave inversion in 3, aVF, V2 through V6, no ST elevations or ST depressions, patient states " I have known T wave inversions" no prior EKG for comparison 0013 sinus rhythm 60 bpm, left axis deviation, T wave inversion in 3, aVF, V2 through V6, no ST ovation or ST depressions, Radiology/Procedures: Radiology/Procedures: IMAGING REPORT Signed PATIENT: LANDRYDELBERT HARRISON IACCOUNT: [id number] : 1980 LOCATION: ER AGE: 40 SEX: F EXAM STATUS: PRE ER ORD. PHYSICIAN: PUNEET ZAVALA DO REASON: cp PROCEDURE: PORTABLE CHEST 1V XR CHEST 1V History: Reason: cp / Spl. Instructions: / History: Comparison: May 02, 2020 Findings: No consolidation or pleural effusion. Normal heart size. No pneumothorax. Impression: 1. No acute cardiopulmonary process. Electronically signed by: Santiago Myers DO (01/17/2021 9:21 PM) [facility] DICTATED and SIGNED BY: SANTIAGO MYERS DO DATE: 01/17/[id number] 0 IMAGING REPORT Signed PATIENT: DELBERT LANDRY IACCOUNT: [id number] : 1980 LOCATION: ER AGE: 40 SEX: F EXAM STATUS: REG ER ORD. PHYSICIAN: PUNEET ZAVALA DO REASON: sob, pleurisy, r/o pe, OMNI 350 100 ML IV PROCEDURE: CT ANGIOGRAPHY CHEST EXAM: CT ANGIOGRAPHY OF THE CHEST WITH AND WITHOUT CONTRAST. HISTORY: Shortness of breath, chest pain. TECHNIQUE: Computed tomographic angiography of the chest was performed before and after the intravenous administration of iodinated contrast. 3-D maximum intensity projections were also performed. One or more of the following individualized dose reduction techniques were utilized for this examination: 1. Automated exposure control. 2. Adjustment of the mA and/or kV according to patient size. 3. Use of iterative reconstruction technique. COMPARISON: None. FINDINGS: Images of the upper abdomen reveal changes of cholecystectomy. Bone windows reveal no suspicious lesions. No pulmonary emboli are identified. There is no aortic dissection or aneurysm. There are no pathologically enlarged mediastinal or axillary lymph nodes. Calcified right hilar lymph nodes are consistent with old granulomatous disease. There is no pleural or pericardial effusion. The heart is not enlarged. There is an uncalcified 4 mm nodule medially in the right lower lobe on image 52. There are calcified granulomas in both lower lobes. A tiny pleural-based nodule in the right middle lobe measures 2 mm and is likely benign. IMPRESSION: 1. No pulmonary embolism. 2. A 4 mm right lower lobe nodule is most likely benign and requires no further follow-up at this small size in the absence of strong risk factors. If there are strong risk factors, follow-up could be considered in one year. Electronically signed by: Donato Coombs MD (01/18/2021 12:42 AM) [facility] DICTATED and SIGNED BY: CAPRICE COOMBS MD DATE: 01/18/21 [id number] 0 Course & Med Decision Making: Course & Med Decision Making Pertinent Labs and Imaging studies reviewed. (See chart for details) COVID-19 CRITERIA: The patient was evaluated during the global COVID-19 pandemic, and that diagnosis was suspected/considered upon their initial presentation. Their evaluation, treatment and testing was consistent with current guidelines for patients who present with complaints or symptoms that may be related to COVID-19. Concern for pleuritic chest pain for the past 2 days in the setting of upper respiratory infection, rapid Covid is negative. Patient continued to ask for pain medication in the ED. initially was excited for pain patch but then declined it when she learned she was receiving a lidocaine patch. Repat EKG with no new changes. Low risk for Mace. CTA with pulmonary nodule but no pulmonary embolus. 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 Will discharge home with strict ED return precautions were given for increased work of breathing, neurologic deficits, syncope, abscess or leg swelling. Encouraged urgent outpatient follow-up with PMD and pulmonology for definitive management of pulmonary nodule. Life- threatening processes were considered but are low suspicion at this time, given history, physical exam and ED workup. Pt was educated on all prescription medications and adverse effects. All patient's questions were answered and pt was stable at time of discharge. Life/limb-threatening differential includes but is not limited to, acute myocardial infarction, aortic dissection, congestive heart failure, esophageal injury including rupture, surgical abdomen, arrhythmia, cardiomyopathy, myocarditis, pericarditis, peptic ulcer disease, pneumomediastinum, pneumonia, pneumothorax, pulmonary embolus, unstable angina, rib fracture, contusion, pericardial tamponade or effusion, traumatic injury including mediastinal hemorrhage or hematoma, or pulmonary contusion. I have spoken with the patient and/or caregivers. I explained the patient's condition, diagnoses and treatment plan based on the information available to me at this time. I have answered the patient and/or caregiver's questions and addressed any concerns. The patient and/or caregivers have a good understanding of patient's diagnosis, condition and treatment plan as can be expected at this point. Vital signs have been stable. Patient's condition is stable and appropriate for discharge from the emergency department. Patient will pursue further outpatient evaluation with primary care physician or other designated or consulting physician as outlined in the discharge instructions. The patient and/or caregivers are agreeable to this plan of care and follow-up instructions have been explained in detail. The patient and/or caregivers have received these instructions in written form and have expressed an understanding of the discharge instructions. The patient and/or caregivers are aware that any significant change of condition or worsening of symptoms should prompt immediate return to this or the closest emergency department or call to 911. Marilyn Disclaimer: Marilyn Disclaimer: This electronic medical record was generated, in whole or in part, using a voice recognition dictation system. Departure Departure Impression: Primary Impression: Person under investigation for COVID-19 Additional Impressions: Upper respiratory infection Chest pain Disposition: 01 HOME / SELF CARE / HOMELESS Condition: STABLE Referrals: NO PCP (PCP) Follow-up with your primary care physician in 24 to 48 hours OR FOLLOW UP WITH FAMILY MEDICINE: [address] [place] [address] Patient Instructions: Costochondritis, Pleurisy Additional Instructions: FOLLOW UP WITH PULMONOLOGY: FOR DEFINITIVE MANAGEMENT of pulmonary nodule [facility] [address] [place] [address] Return to ED immediately if your oxygen level drops below 90% (purchase a pulse oximetry at a medical supply store), difficulties breathing including rapid breathing or increased work of breathing (skin sucking under ribs), chest pain or stroke-like symptoms (facial droop, speech changes, arm/leg weakness). You have been tested for or diagnosed with COVID-19. It is an infection caused by a new type of coronavirus. COVID-19 will cause cold-like or mild flu symptoms in most. It can cause more severe symptoms like problems breathing in some. There is no treatment for COVID-19. The body will clear the infection over time. Self-care will help to ease discomfort. Steps to Take: Self-Care Rest as needed. Healthy habits may help you feel better. Steps include: Choose healthy foods including fruits and vegetables. Drink water throughout the day. Get plenty of sleep each night. If you smoke, try to quit. It may ease breathing. Avoid alcohol. Keep Others Healthy The virus can spread to others. Droplets are released every time you sneeze or cough. The droplets can get into the mouth, nose, or eyes of people near you and lead to infection. To lower the chances of spreading COVID-19 to others: Stay at home until your doctor has said it is safe to leave. If you tested positive this will mean staying isolated until both of the following are true: At least 7 days have passed since the start of illness. You are free of fever for at least 72 hours without the use of medicine. During this time: - Avoid public areas, events, or transportation. Do not return to work or school until your doctor has said it is safe to do so. - Call ahead if you need to go to a medical center. Let them know you may have COVID-19. It will help them guide you where to go. They may also ask you to wear a facemask when you come to the office. - If you call for emergency medical services, let them know you may have COVID- 19. While at home: - Try to avoid close contact with others. Stay about 6 feet away. - If possible, spend most of your time in a separate room from others. - Use a face mask if you will be in close contact with others such as sharing a room or vehicle. - Have someone wipe down common surfaces in the home. Use household washing machine loader every day on areas like doorknobs, counters, or sinks. - Cough or sneeze into a tissue. Throw the tissue away right after use. If a tissue is not available, cough or sneeze into your elbow. - Wash your hands often. Wash them after sneezing or coughing. Use soap and water and wash for at least 20 seconds. Alcohol based hand bakeshop cleaner can be used if soap and water is not available. - Do not prepare food for others. Avoid sharing personal items like forks, spoons, or toothbrushes. - Avoid close contact with pets while you are sick. There is no evidence of the virus passing to pets. This is a safety step until more is known about this virus. Isolation can be frustrating. Social interaction can help. Keep in touch with friends and family through phone and tech options. You can still interact with others in your home, just keep a safe distance of about 6 feet. Follow-up: Your doctors office will check in with you to see if there are any changes in your health. You may be asked to keep track of symptoms to share with them. They will also let you know when you are clear to be in public again. Problems to Look Out For: Contact your doctor if your recovery is not going as you expect. Get emergency care if you have problems such as: - Trouble breathing - Nonstop chest pain or pressure - Changes in awareness, confusion, or problems waking - Lips or face have bluish color - Worsening of symptoms If you think you have an emergency, call for emergency medical services right away. [facility] Jan 17, 2021 21:52
[2021-01-17 21:54] LABS: CALCIUM 9.4 mg/dL (8.5-10.1); CREATININE 0.8 mg/dL (0.6-1.0); GFR 79.9; POTASSIUM 4.4 mmol/L (3.5-5.1)
[2021-01-17 21:58] LABS: PREG TEST PT QUAL NEGATIVE (NEG)
[2021-01-17 22:00] LABS: ALBUMIN 3.8 g/dL (3.4-5.0); MAGNESIUM 2.1 mg/dL (1.8-2.4); TOTAL BILIRUBIN 0.1 mg/dL (0.2-1.0); TOTAL PROTEIN 7.5 g/dL (6.4-8.2)
[2021-01-17] MEDS ORDERED: LIDOCAINE (700MG/PATCH) PATCH. TD SCH (23:24)
--- NOTE | 2021-01-17 23:32 | EKG ---
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
[2021-01-18] MEDS ORDERED: CONTRAST GIVEN. MC PRN (00:30)
[2021-01-18] MEDS ORDERED: IOHEXOL 350 MG/ML 100 ML VIAL. IV ONE (00:30)
--- NOTE | 2021-01-18 00:44 | RAD ---
EXAM: CT ANGIOGRAPHY OF THE CHEST WITH AND WITHOUT CONTRAST. HISTORY: Shortness of breath, chest pain. TECHNIQUE: Computed tomographic angiography of the chest was performed before and after the intraveno us administration of iodinated contrast. 3-D maximum intensity projections were also performed. One o r more of the following individualized dose reduction techniques were utilized for this examination: 1. Automated exposure control. 2. Adjustment of the mA and/or kV according to patient size. 3. Use of iterative reconstruction technique. COMPARISON: None. FINDINGS: Images of the upper abdomen reveal changes of cholecystectomy. Bone windows reveal no suspi cious lesions. No pulmonary emboli are identified. There is no aortic dissection or aneurysm. There are no pathologically enlarged mediastinal or axillary lymph nodes. Calcified right hilar lymph nodes are consistent with old granulomatous disease. There is no pleural or pericardial effusion. Th e heart is not enlarged. There is an uncalcified 4 mm nodule medially in the right lower lobe on image 52. There are calcified granulomas in both lower lobes. A tiny pleural-based nodule in the right middle lobe measures 2 mm a nd is likely benign. IMPRESSION: 1. No pulmonary embolism. 2. A 4 mm right lower lobe nodule is most likely benign and requires no further follow-up at this sma ll size in the absence of strong risk factors. If there are strong risk factors, follow-up could be c onsidered in one year. Electronically signed by: Donato Coombs MD (01/18/2021 12:42 AM) [facility]
[2021-01-18 01:19] VITALS: BP 120/61
--- NOTE | 2021-01-18 06:08 | EKG ---
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
--- NOTE | 2021-01-18 16:36 | NUR ---
IP: Informed pt of negative covid test. Pt verbalized understanding.
== END 2021-01-18 01:45 | disposition home or self-care (01) ==
LOC: ER 19:00
DX: J06.9 Acute upper respiratory infection, unspecified (principal); Z20.822 Contact with and (suspected) exposure to COVID-19; R07.89 Other chest pain; F31.9 Bipolar disorder, unspecified; J45.909 Unspecified asthma, uncomplicated; E11.9 Type 2 diabetes mellitus without complications; E78.00 Pure hypercholesterolemia, unspecified; F17.200 Nicotine dependence, unspecified, uncomplicated; Z88.1 Allergy status to other antibiotic agents
CPT/HCPCS: 36415; 71045; 71275; 80053; 80307; 83690; 83735; 84484; 84703; 85025; 87426; 93005; 96374; 99285; J1885; Q9967; U0003; U0005

== ENCOUNTER 2021-05-25 15:56 | Emergency (ER) | payer SELFPAY ==
[~2021-05-25] VITALS: Ht 165.1 cm; Wt 90.0 kg
[~2021-05-25 15:56] MED LIST changes: +CLIN-94 PO; -CLIN300C9 PO; +CYCL10TA19 PO; -CYCL10TA2 PO
[2021-05-25 16:30] VITALS: BP 146/82
[2021-05-25] MEDS ORDERED: ORPH100T PO (17:27)
--- NOTE | 2021-05-25 17:30 | PHYS DOC ---
Past Medical History Past Medical History: Asthma, Bipolar, Depression, Diabetes-Type II, High Cholesterol, Other Additional Past Medical Histor: CROHNS, DECREASED VISION R EYE, CARDIOMEGALY Past Surgical History: Cholecystectomy, , Other Additional Past Surgical Histo: right ankle, MULTIPLE R EYE INJECTIONS Smoking Status: Former Smoker Alcohol Use: None Drug Use: None General Adult EDM: Chief Complaint: LOWER EXT PAIN HPI: HPI: Patient is a 40 year old female with history of diabetic neuropathy who presents with bilateral lower extremity pain and paresthesias. Patient reports she has chronic peripheral neuropathy for which she takes 400mg gabapentin daily. The past few days, her nerve pain has increased significantly and interferes with her ability to sleep and work. She reports her FBG measurements have been around 94 consistently. Patient denies trauma, injury, saddle anesthesia, bowel or bladder incontinence, weakness, gait disturbances. Review of Systems: Review of Systems: Constitutional: Denies fever or chills. Respiratory: Denies cough or shortness of breath. Cardiovascular: Denies chest pain or edema. GI: Denies abdominal pain, nausea, vomiting, bloody stools or diarrhea. : Denies dysuria or hematuria. Musculoskeletal: See HPI Integument: Denies rash or other skin lesion. Neurologic: See HPI Endocrine: Denies polyuria or polydipsia. Heart Score: C/O Chest Pain: No Current Medications: Current Medications Medications (Trade) Dose Ordered Sig/[facility] Start Time Stop Time Status Last Admin Dose Admin Orphenadrine Citrate (Norflex) 60 mg 1X ONCE 05/25/21 17:15 05/25/21 17:16 UNV Allergies: Allergies: Allergies Coded Allergies Type Severity Reaction Last Updated Verified amoxicillin Allergy Unknown 10/03/13 Yes Physical Exam: PE: Constitutional: Well developed, well nourished, no acute distress, non-toxic appearance. Cardiovascular: Heart rate regular rhythm, no murmur. Lungs & Thorax: Bilateral breath sounds clear to auscultation. Skin: Warm, dry, no erythema, no rash. Back: No step-offs, no midline tenderness, no CVA tenderness. Extremities: No tenderness, no cyanosis, no clubbing, ROM intact, no edema. Neurologic: Alert and oriented x4, motor function grossly intact including great toe dorsiflexion, sensory function grossly intact, no focal deficits noted. Current Patient Data: Labs: Laboratory Tests Test 05/25/21 17:49 Glucose (Fingerstick) 126 mg/dL (70-99) Vital Signs: Vital Signs Date Time Temp Pulse Resp B/P (MAP) Pulse Ox O2 Delivery O2 Flow Rate FiO2 05/25/21 16:30 97.7 76 16 146/82 (103) 95 Room Air 97.7 Course & Med Decision Making: Course & Med Decision Making Pertinent Labs and Imaging studies reviewed. (See chart for details) Patient presents to emergency department for worsening peripheral nerve pain. Patient states her diabetes is managed by her primary care provider, and that she has not been to a pain management clinic or an surgical supervisor thus far. 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 Provided patient with Norflex IM in the department to reduce muscle spasm that could be contributing to worsening nerve pain in her back. On reevaluation, patient feels improved. Prescription for p.o. Norflex sent to her pharmacy. Patient understands and is agreeable to discharge plan. Marilyn Disclaimer: Marilyn Disclaimer: This electronic medical record was generated, in whole or in part, using a voice recognition dictation system. Departure Departure Impression: Primary Impression: Neuropathic pain of both legs Disposition: HOME / SELF CARE / HOMELESS Condition: STABLE Referrals: NO PCP (PCP) BRITTANY BENNETT MD Patient Instructions: Diabetic Neuropathy Additional Instructions: [facility] Endocrinology Appointments: Referrals are accepted through the Endocrine office. FAX: [phone] Office: [phone] Appointments: [phone] Option 1 [facility] - [address] [address] Scripts Orphenadrine Citrate (ORPHENADRINE CITRATE) 100 Mg Tablet.er 1 TAB PO PRN BID PRN for PAIN, #20 TAB 1 Refill Prov: JOHANA BALBUENA 05/25/21 JOHANA BALBUENA May 25, 2021 17:30
[2021-05-25] MEDS ORDERED: ORPHENADRINE CITRATE 60 MG/2 ML VIAL. IM ONE (17:45)
== END 2021-05-25 18:11 | disposition home or self-care (01) ==
LOC: ER 15:56
DX: E11.40 Type 2 diabetes mellitus with diabetic neuropathy, unspecified (principal); R20.2 Paresthesia of skin; J45.909 Unspecified asthma, uncomplicated; F31.9 Bipolar disorder, unspecified; E78.00 Pure hypercholesterolemia, unspecified; Z87.891 Personal history of nicotine dependence; Z88.1 Allergy status to other antibiotic agents
CPT/HCPCS: 82962; 96372; 99283; J2360

== ENCOUNTER 2021-10-28 17:55 | Emergency (ER) | payer OTHER ==
[~2021-10-28] VITALS: Ht 165.1 cm; Wt 95.0 kg
[~2021-10-28 17:55] MED LIST changes: +ORPH100T PO
[2021-10-28] MEDS ORDERED: KETOROLAC 15 MG/ML VIAL. IVP ONE (19:00)
[2021-10-28] MEDS ORDERED: IV RINGERS,LACTATED 1000ML 1,000 ML IV ONE (19:00)
[2021-10-28] MEDS ORDERED: ONDANSETRON PF 4 MG/2 ML VIAL. IVP ONE (19:00)
[2021-10-28 19:04] LABS: BASO # 0.1 x10^3/uL (0.0-0.2); BASO % 1 % (0-3); EOS # 0.2 x10^3/uL (0.0-0.7); EOS % 1 % (0-3); HEMATOCRIT 35.1 % (36.0-47.0); HEMOGLOBIN 11.1 g/dL (12.0-15.5); LYMPH # 2.5 x10^3/uL (1.0-4.8); LYMPH % 16 % (24-48); MEAN CORPUSCULAR HEMOGLOBIN 25 pg (25-35); MEAN CORPUSCULAR HGB CONC 32 g/dL (31-37); MEAN CORPUSCULAR VOLUME 80 fL (79-100); MONO # 0.7 x10^3/uL (0.0-1.1); MONO % 4 % (0-9); NEUT # 12.5 x10^3/uL (1.8-7.7); NEUT % 78 % (31-73); PLATELET COUNT 361 x10^3/uL (140-400); RED BLOOD COUNT 4.37 x10^6/uL (3.50-5.40); RED CELL DISTRIBUTION WIDTH 15.9 % (11.5-14.5)
[2021-10-28 19:17] LABS: CALCIUM 9.2 mg/dL (8.5-10.1); CREATININE 0.9 mg/dL (0.6-1.0); GFR 69.3; POTASSIUM 4.1 mmol/L (3.5-5.1)
[2021-10-28 19:21] LABS: ALBUMIN 3.9 g/dL (3.4-5.0); ALBUMIN/GLOBULIN RATIO 0.8 (1.0-1.7); TOTAL BILIRUBIN 0.2 mg/dL (0.2-1.0); TOTAL PROTEIN 8.6 g/dL (6.4-8.2)
[2021-10-28 19:24] LABS: BACTERIA,URINE 0 /HPF (0-FEW)
[2021-10-28 19:51] LABS: U PREG PATIENT NEGATIVE (NEG)
--- NOTE | 2021-10-28 19:57 | PHYS DOC ---
Past Medical History Past Medical History: Asthma, Bipolar, Depression, Diabetes-Type II, High Cholesterol, Other Additional Past Medical Histor: CROHNS, DECREASED VISION R EYE, CARDIOMEGALY Past Surgical History: Cholecystectomy, , Other Additional Past Surgical Histo: right ankle, MULTIPLE R EYE INJECTIONS Smoking Status: Former Smoker Alcohol Use: None Drug Use: None General Adult EDM: Chief Complaint: ABDOMINAL PAIN HPI: HPI: Patient is a 41 year old female with past medical history that includes Crohn's disease who presents with lower abdominal pain and constipation. Patient states that a few days ago, she ate sunflower seeds, including the shells. Today, she felt constipated before leaving work and was unable to defecate. When she got home, she states she did pass a large bowel movement that was very firm and very long. She reports that she believes the sunflower kernels "cut her up down there." Though she has passed a bowel movement, patient reports she continues to have sharp lower abdominal cramps and nausea. Patient has not vomited at this point. She denies fever, chills, generalized weakness, hematemesis, bloody stool, diarrhea, dysuria, hematuria. Review of Systems: Review of Systems: Constitutional: See HPI Eyes: Denies change in visual acuity, visual field deficits or discharge HENT: Denies ear pain, nasal congestion or sore throat Respiratory: Denies cough or shortness of breath Cardiovascular: Denies chest pain, palpitations or edema GI: See HPI : See HPI Musculoskeletal: Denies back pain or joint pain Integument: Denies rash or other skin lesion Neurologic: Denies headache, focal weakness or sensory changes Heart Score: C/O Chest Pain: No Current Medications: Current Medications Medications (Trade) Dose Ordered Sig/[facility] Start Time Stop Time Status Last Admin Dose Admin Ketorolac Tromethamine (Toradol 15mg Vial) 15 mg 1X ONCE 10/28/21 19:00 10/28/21 19:01 DC 10/28/21 19:11 15 MG Ondansetron HCl (Zofran) 4 mg 1X ONCE 10/28/21 19:00 10/28/21 19:01 DC 10/28/21 19:11 4 MG Ringer's Solution 1,000 ml @ 1,000 mls/hr 1X ONCE 10/28/21 19:00 10/28/21 19:59 10/28/21 19:10 1,000 MLS/HR Allergies: Allergies: Allergies Coded Allergies Type Severity Reaction Last Updated Verified amoxicillin Allergy Unknown 10/03/13 Yes Physical Exam: PE: Constitutional: Well developed, well nourished, non-toxic appearance. HENT: Normocephalic, atraumatic, bilateral external ears normal, oropharynx moist, nose normal. Eyes: EOMI, conjunctiva normal, no discharge. Neck: Normal range of motion, no stridor. Cardiovascular: Heart regular rate and rhythm. No apparent murmurs, rubs or gallops. Lungs & Thorax: Equal thoracic expansion, no increased work of breathing. Abdomen: Bowel sounds normal, soft, low abdominal tenderness with voluntary guarding, no rebound tenderness, negative McBurney's point tenderness, negative Rovsing sign, no masses, no pulsatile masses. Skin: Warm, dry, no erythema, no rash. Neurologic: Alert and oriented x4, normal motor function, normal sensory function, no focal deficits noted. Current Patient Data: Labs: Laboratory Tests Test 10/28/21 18:30 10/28/21 18:40 Urine Collection Type Unknown Urine Color (Auto) Light yellow Urine Turbidity Clear Urine pH (Auto) 5.5 (<5.0-8.0) Urine Specific [place] 1.019 (1.000-1.030) Urine Protein (Auto) Negative mg/dL (Negative) Urine Glucose (Auto)(UA) Negative mg/dL (Negative) Urine Ketones (Auto) Negative mg/dL (Negative) Urine Blood (Auto) Negative (Negative) Urine Nitrite Negative (Negative) Urine Bilirubin (Auto) Negative (Negative) Urine Urobilinogen (Auto) Normal mg/dL (Normal) Urine Leukocyte Esterase (Auto) Negative (Negative) Urine RBC 1-2 /HPF (0-2) Urine WBC 1-4 /HPF (0-4) Urine Squamous Epithelial Cells Few /LPF Urine Bacteria 0 /HPF (0-FEW) Urine Mucus Slight /LPF Urine Test Negative (NEG) White Blood Count 16.0 x10^3/uL (4.0-11.0) H Red Blood Count 4.37 x10^6/uL (3.50-5.40) Hemoglobin 11.1 g/dL (12.0-15.5) L Hematocrit 35.1 % (36.0-47.0) L Mean Corpuscular Volume 80 fL (79-100) Mean Corpuscular Hemoglobin 25 pg (25-35) Mean Corpuscular Hemoglobin Concent 32 g/dL (31-37) Red Cell Distribution Width 15.9 % (11.5-14.5) H Platelet Count 361 x10^3/uL (140-400) Neutrophils (%) (Auto) 78 % (31-73) H Lymphocytes (%) (Auto) 16 % (24-48) L Monocytes (%) (Auto) 4 % (0-9) Eosinophils (%) (Auto) 1 % (0-3) Basophils (%) (Auto) 1 % (0-3) Neutrophils # (Auto) 12.5 x10^3/uL (1.8-7.7) H Lymphocytes # (Auto) 2.5 x10^3/uL (1.0-4.8) Monocytes # (Auto) 0.7 x10^3/uL (0.0-1.1) Eosinophils # (Auto) 0.2 x10^3/uL (0.0-0.7) Basophils # (Auto) 0.1 x10^3/uL (0.0-0.2) Sodium Level 136 mmol/L (136-145) Potassium Level 4.1 mmol/L (3.5-5.1) Chloride Level 100 mmol/L (98-107) Carbon Dioxide Level 24 mmol/L (21-32) Anion Gap 12 (6-14) Blood Urea Nitrogen 18 mg/dL (7-20) Creatinine 0.9 mg/dL (0.6-1.0) Estimated GFR (Cockcroft-Gault) 69.3 BUN/Creatinine Ratio 20 (6-20) Glucose Level 124 mg/dL (70-99) H Calcium Level 9.2 mg/dL (8.5-10.1) Total Bilirubin 0.2 mg/dL (0.2-1.0) Aspartate Amino Transferase (AST) 14 U/L (15-37) L Alanine Aminotransferase (ALT) 20 U/L (14-59) Alkaline Phosphatase 98 U/L (46-116) Total Protein 8.6 g/dL (6.4-8.2) H Albumin 3.9 g/dL (3.4-5.0) Albumin/Globulin Ratio 0.8 (1.0-1.7) L Lipase 83 U/L (73-393) Laboratory Tests 10/28/21 18:40 Laboratory Tests 10/28/21 18:40 Vital Signs: Vital Signs Date Time Temp Pulse Resp B/P (MAP) Pulse Ox O2 Delivery O2 Flow Rate FiO2 10/28/21 21:56 20 99 Room Air 10/28/21 21:32 64 96/56 (69) 95 Room Air 10/28/21 21:12 65 99/55 (70) 96 Room Air 10/28/21 20:52 66 100/55 (70) 96 Room Air 10/28/21 20:31 63 100/53 (69) 97 Room Air 10/28/21 20:10 20 98 Room Air 10/28/21 19:35 71 134/62 (86) 97 Room Air 10/28/21 19:05 72 19 104/53 (70) 98 10/28/21 18:18 98.1 79 16 122/87 (99) 98 Room Air 98.1 Radiology/Procedures: Radiology/Procedures: PROCEDURE: CT ABDOMEN PELVIS WO CONTRAST Exam: CT of abdomen and pelvis without contrast INDICATION: Lower abdominal pain, leukocytosis TECHNIQUE: Sequential axial images through the abdomen and pelvis obtained without IV contrast. Sagittal and coronal reformatted images were reconstructed from the axial data and reviewed. Exposure: One or more of the following in the visualized dose reduction techniques were utilized for this examination: 1. Automated exposure control 2. Adjustment of the MA and/or KV according to patient size 3. Use of iterative of reconstructive technique Comparisons: None FINDINGS: Heart size is normal. No pericardial effusion. Visualized lung bases are clear. No pleural effusion. Evaluation solid organs is limited secondary to noncontrast technique. Diffuse hepatic steatosis. Spleen, pancreas and adrenals are unremarkable. Gallbladder is absent. No perinephric inflammation or hydronephrosis. Nonobstructing 4 mm calculus at the mid left kidney. No ureteral calculi are identified. Bladder is decompressed not well evaluated. Uterus not enlarged. No abnormal adnexal mass. Moderate amount stool noted in the colon. Appendix is nonidentified. No free intra-abdominal air or fluid. No obstruction. Abdominal aorta has normal course and caliber. No enlarged intra-abdominal lymph nodes are identified. No suspicious osseous lesions or acute fractures. IMPRESSION: 1. No sequela of infection identified within the abdomen or pelvis. 2. Diffuse hepatic steatosis. 3. Nonobstructing calculus at the left kidney. Electronically signed by: Kd Nobles MD (10/28/2021 8:22 PM) [facility] Course & Med Decision Making: Course & Med Decision Making Pertinent Labs and Imaging studies reviewed. (See chart for details) Patient is a 41-year-old female with history of Crohn's disease who presents with lower abdominal pain and recent passage of a very large, firm bowel movement. Patient is concerned secondary to pain after passing BM. CT reveals left-sided nonobstructing renal stone and moderate stool burden without any other acute changes. No evidence of infection on urinalysis. Discussed management with patient, who prefers to take laxatives at home. A work note will be provided to her for tomorrow, as she will not likely get much rest this evening. All the patient's questions were answered. Contact information for follow-up with GI as well as return precautions were provided. Patient understands and is agreeable to discharge plan. Dragon Disclaimer: Dragon Disclaimer: This electronic medical record was generated, in whole or in part, using a voice recognition dictation system. Departure Departure Impression: Primary Impression: Constipation, acute Additional Impression: Kidney stone on left side Disposition: 01 HOME / SELF CARE / HOMELESS Condition: IMPROVED Referrals: NO PCP (PCP) PINKY ALFRED MD Patient Instructions: Constipation, Adult, [id number], Crohn's Disease, Kidney Stones, [id number] Additional Instructions: EMERGENCY DEPARTMENT GENERAL DISCHARGE INSTRUCTIONS Thank you for coming to [facility] Emergency Department (ED) today and trusting us with you care. We trust that you had a positive experience in our Emergency Department. If you wish to speak to the department management, you may call the director at . YOUR FOLLOW UP INSTRUCTIONS ARE FOLLOWS: 1. Follow up with your primary care doctor. If you do not have a primary doctor, please ask for a resource list of physicians or clinics that may be able to assist you with follow up care. 2. The emergency provider has interpreted your imaging studies, if any were ordered. The radiology manager imaging also reviewed them. If there is a change in the findings, you will be notified in 48 hours when at all possible. 3. If a lab test or culture has been done, your results will be reviewed and you will be notified if you need a change in treatment. 4. Follow instructions verbalized to you and refer to the printouts if needed. ADDITIONAL INSTRUCTIONS AND INFORMATION: 1. Your care today has been supervised by a physician who is specially trained in emergency care. Many problems require more than one evaluation for a complete diagnosis and treatment. We recommend that you schedule your follow up appointment as recommended to ensure complete treatment of you illness or injury. If you are unable to obtain follow up care and continue to have a problem, or if your condition worsens, we recommend that you return to the ED. 2. We are not able to safely determine your condition over the phone nor are we able to give sound medical advice over the phone. For these safety reasons, if you call for medical advice we will ask you to come to the ED for further evaluation. 3. If you have any questions regarding these discharge instructions please call the ED at . SAFETY INFORMATION: In the interest of safety, wellness, and injury prevention; we encourage you to wear your seat belt, if you smoke; quite smoking, and we encourage family to use a protective helmet for bicycling and other sporting events that present an increased risk for head injury. IF YOUR SYMPTOMS WORSEN OR NEW SYMPTOMS DEVELOP, OR YOU HAVE CONCERNS ABOUT YOUR CONDITION; OR IF YOUR CONDITION WORSENS WHILE YOU ARE WAITING FOR YOUR FOLLOW UP APPOINTMENT; EITHER CONTACT YOUR PRIMARY CARE DOCTOR, THE PHYSICIAN WHOSE NAME AND NUMBER YOU WERE GIVEN, OR RETURN TO THE ED IMMEDIATELY. Scripts Bisacodyl (DULCOLAX) 10 Mg Supp.rect 10 MG RC PRN DAILY PRN for CONSTIPATION, #1 BOX 0 Refills Prov: JOHANA BALBUENA 10/28/21 Polyethylene Glycol 3350 (MIRALAX) 119 Gm Powder 1 TBS PO DAILY, #527 GM Prov: JOHANA BALBUENA 10/28/21 Ibuprofen (IBUPROFEN) 600 Mg Tablet 600 MG PO PRN Q6HRS PRN for INFLAMMATION, #30 TAB Prov: JOHANA BALBUENA 10/28/21 JOHANA BALBUENA October 28, 2021 19:57
[2021-10-28] MEDS ORDERED: MORPHINE SULFATE 2 MG/ML INJ. IVP ONE ×2 (20:15→22:00)
--- NOTE | 2021-10-28 20:25 | RAD ---
Exam: CT of abdomen and pelvis without contrast INDICATION: Lower abdominal pain, leukocytosis TECHNIQUE: Sequential axial images through the abdomen and pelvis obtained without IV contrast. Sagit beatrice and coronal reformatted images were reconstructed from the axial data and reviewed. Exposure: One or more of the following in the visualized dose reduction techniques were utilized for this examination: 1. Automated exposure control 2. Adjustment of the MA and/or KV according to patient size 3. Use of iterative of reconstructive technique Comparisons: None FINDINGS: Heart size is normal. No pericardial effusion. Visualized lung bases are clear. No pleural effusion. Evaluation solid organs is limited secondary to noncontrast technique. Diffuse hepatic steatosis. Spleen, pancreas and adrenals are unremarkable. Gallbladder is absent. No perinephric inflammation or hydronephrosis. Nonobstructing 4 mm calculus at the mid left kidney. N o ureteral calculi are identified. Bladder is decompressed not well evaluated. Uterus not enlarged. No abnormal adnexal mass. Moderate amount stool noted in the colon. Appendix is nonidentified. No free intra-abdominal air or f luid. No obstruction. Abdominal aorta has normal course and caliber. No enlarged intra-abdominal lymph nodes are identified. No suspicious osseous lesions or acute fractures. IMPRESSION: 1. No sequela of infection identified within the abdomen or pelvis. 2. Diffuse hepatic steatosis. 3. Nonobstructing calculus at the left kidney. Electronically signed by: Kd Nobles MD (10/28/2021 8:22 PM) [facility]
[2021-10-28] MEDS ORDERED: POLY119P4 PO (20:45)
[2021-10-28] MEDS ORDERED: BISA10SU55 RC (20:45)
[2021-10-28] MEDS ORDERED: IBUP-1007 PO (20:45)
[2021-10-28 21:32] VITALS: BP 96/56
== END 2021-10-28 21:50 | disposition home or self-care (01) ==
LOC: ER 17:55
DX: N20.0 Calculus of kidney (principal); K59.00 Constipation, unspecified; F31.9 Bipolar disorder, unspecified; J45.909 Unspecified asthma, uncomplicated; E11.9 Type 2 diabetes mellitus without complications; E78.00 Pure hypercholesterolemia, unspecified; K50.90 Crohn's disease, unspecified, without complications; Z90.49 Acquired absence of other specified parts of digestive tract; Z87.891 Personal history of nicotine dependence; Z88.1 Allergy status to other antibiotic agents
CPT/HCPCS: 36415; 74176; 80053; 81001; 81025; 83690; 85025; 96361; 96374; 96375; 96376; 99285; J1885; J2270; J2405; J7120